=== PATIENT | male | born 1940 | race Caucasian/White ===

== ENCOUNTER 2024-11-14 13:31 | Emergency (ER) | payer MEDICARE, BC ==
[~2024-11-14] VITALS: Ht 182.9 cm; Wt 69.4 kg
[2024-11-14] MEDS ORDERED: MORPHINE SULFATE INJ 4 MG/ML DISP.SYRIN ONE (14:36)
[2024-11-14] MEDS ORDERED: ONDANSETRON HCL/PF 4 MG/2 ML VIAL ONE (14:36)
[2024-11-14] MEDS: ONDANSETRON HCL/PF 4 MG/2 ML VIAL IVP ONE (14:58)
[2024-11-14] MEDS: MORPHINE SULFATE INJ 2 MG/ML DISP.SYRIN IV ONE (15:00)
[2024-11-14] MEDS ORDERED: HYDR-3980 PO (16:35)
[2024-11-14] MEDS ORDERED: HYDROCODONE/APAP 5/325MG TABLET ONE (16:59)
[2024-11-14] MEDS: HYDROCODONE/APAP 5/325MG TABLET PO ONE (17:05)
[2024-11-14 17:17] VITALS: BP 143/77; TEMP 97.6; O2SAT 95
[2024-11-14] MEDS ORDERED: TELM80TA9 PO (17:20)
[2024-11-14] MEDS ORDERED: DORZ10DR11 EACHEYE (17:20)
== END 2024-11-14 18:00 | disposition home or self-care (01) ==
LOC: ER 13:35
DX: S09.8XXA Other specified injuries of head, initial encounter (principal); S42.391A Other fracture of shaft of right humerus, initial encounter for closed fracture; I10 Essential (primary) hypertension; M25.511 Pain in right shoulder; M25.561 Pain in right knee; M79.621 Pain in right upper arm; W01.0XXA Fall on same level from slipping, tripping and stumbling without subsequent striking against object, initial encounter; Y93.89 Activity, other specified; Y92.89 Other specified places as the place of occurrence of the external cause; Y99.8 Other external cause status
CPT/HCPCS: 29105; 70450; 73030; 73060; 73080; 73564; 96374; 96375; 99285; J2270; J2405